=== PATIENT | male | born 1950 | race Caucasian/White ===

== ENCOUNTER 2017-11-15 09:53 | Emergency (ER) | payer MEDICARE, MEDICAID ==
[2017-11-15 10:46] LABS: #Eosinphils 0.1 thou/uL (0.0-0.7); #Lymphocytes 1.2 thou/uL (1.20-3.40); #Neutrophils 9.8 thou/uL (1.40-6.50); %Basophils 0.3 % (0.0-1.0); %Eosinophils 0.6 % (0.0-10.0); %Lymphocytes 9.7 % (21.0-51.0); %Monocytes 8.5 % (0.0-10.0); Hemoglobin 13.8 g/dL (14.0-18.0); Mean Corpuscular HGB CONC 32.5 g/dL (32.0-36.0); Mean Corpuscular Hemoglobin 27.8 pg (27.0-31.0); Mean Corpuscular Volume 85.7 fl (80.0-94.0); Mean Platelet Volume 7.3 fL (7.4-10.4); Platelet Count 178 thou/uL (130-400); RBC Distribution Width 13.5 % (11.5-14.5); Red Blood Cell (RBC) Count 4.95 mill/uL (4.70-6.10); White Blood Cell (WBC) Count 12.1 thou/uL (4.8-10.8)
[2017-11-15 11:04] LABS: ALT (SGPT) 17 U/L (8-55); AST (SGOT) 11 U/L (5-34); Albumin 3.6 g/dL (3.4-4.8); Alkaline Phosphatase 99 U/L (40-150); Anion Gap 12 mmol/L (10-20); BUN (Urea Nitrogen) 16 mg/dL (8.4-25.7); Bilirubin, Total 0.8 mg/dL (0.2-1.2); CK (CPK) 55 U/L (30-200); Calc. Creatinine Clearance 0 mL/min (70-130); Calcium 8.9 mg/dL (7.8-10.44); Carbon Dioxide 26 mmol/L (23-31); Chloride 102 mmol/L (98-107); Estimated GFR-MDRD 58; Glucose 180 mg/dL (80-115); Lipase 7 U/L (8-78); Potassium 3.7 mmol/L (3.5-5.1); Protein, Total 6.6 g/dL (5.8-8.1); Sodium 136 mmol/L (136-145)
[2017-11-15 11:07] LABS: CKMB 0.7 ng/mL (0-6.6); Troponin I 0.014 ng/mL (< 0.028)
[2017-11-15 12:30] LABS: Bilirubin Negative (Negative); Blood, Urine Moderate (Negative); Clarity TURBID (Clear); Glucose, Urine (Dipstick) Negative (Negative); Leukocyte Large (Negative); Nitrite Positive (Negative); Protein, Urine (Dipstick) 30 mg/dL (Neg-Trace); Urobilinogen 0.2 mg/dL (0.2-1.0); pH, Urine 6.5 (5.0-9.0)
[2017-11-15 12:34] LABS: Yeast-AUWi Flag 37.8 (0-25.0)
[2017-11-15 12:43] LABS: Bacteria/HPF 1+ HPF (None Seen); Hyaline Casts/LPF NONE SEEN LPF (0-3 Hyaline); RBC/HPF 0-3 HPF (0-3); Squamous Epithelial 0-3 HPF (0-3)
[2017-11-15] MEDS ORDERED: Ibuprofen 200 MG TAB ONE (13:10)
[2017-11-15] MEDS ORDERED: cefTRIAXone\\ROCEPHIN 2 GM in Sodium Chloride 0.9% 100 ML IVPB ONE (13:15)
--- NOTE | 2017-11-15 14:07 | CT ---
CTA OF THE CHEST AND ABDOMEN WITH CONTRAST: COMPARISON: None. HISTORY: Chest pain and generalized weakness. Lower back pain. Abdominal pain that radiates to the back. TECHNIQUE: Multiple contiguous axial images were obtained in a CTA of the chest and abdomen [facility] Three-D sagittal and coronal MIP reformats were performed. FINDINGS: Atelectasis is seen in both lung bases. No focal infiltrates are seen in the lungs. No suspicious p ulmonary nodules are seen. No pneumothorax or pleural effusion are present. The heart is normal in size without focal cardiac abnormality. Calcifications are seen in the [place] arteries and aorta. No hilar or mediastinal lymphadenopathy are seen. There is a 1.8 cm hypodensity in the left kidney which likely represents a cyst. The liver, gallblad alcides, right kidney, spleen, and pancreas are unremarkable. There is a 2.1 cm mass adjacent to the lef t adrenal gland. This could represent a lesion emanating from the medial limb of the left adrenal gl and versus an enlarged retroperitoneal lymph node. No other enlarged lymph nodes are seen in the ret roperitoneum. There is fullness in the medial limb of the left adrenal gland which measures 1.6 cm i n size. This may represent a mass in the right adrenal gland. The visualized large and small bowel are unremarkable. Degenerative changes are seen in the spine. A pacemaker is seen with its leads in the right atrium and ventricle. The thoracic aorta is normal in caliber without evidence of dissection and has mild diffuse atheroscl erotic disease. Mild atherosclerotic disease is seen in the suprarenal aorta. The celiac trunk, SMA , and FREIDA appear patent. Mild atherosclerotic disease is seen in the celiac trunk and SMA. Moderate atherosclerotic disease is seen in the FREIDA. There is a single renal artery on each side with minimal atherosclerotic disease. The infrarenal aor ta demonstrates ectasia measuring 3.5 cm in greatest dimension. There is mural thrombus along the ri ght posterolateral wall of the aorta in this location. Moderate diffuse calcified plaque is seen in the infrarenal aorta and common iliac arteries. There is no evidence of significant dissection. IMPRESSION: 1. 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 2. Left adrenal mass versus enlarged retroperitoneal lymph node as above. Right adrenal nodule. 3. Left renal cyst. POS: [facility]
[2017-11-15] MEDS ORDERED: ISOVUE-370 76%-LOCM 1 ML ONE (14:35)
== END 2017-11-15 15:20 | disposition home or self-care (01) ==
LOC: ERS 09:53
DX: N30.00 Acute cystitis without hematuria (principal); J44.9 Chronic obstructive pulmonary disease, unspecified; I50.9 Heart failure, unspecified; E78.00 Pure hypercholesterolemia, unspecified; I25.2 Old myocardial infarction; K21.9 Gastro-esophageal reflux disease without esophagitis; Z79.82 Long term (current) use of aspirin; Z79.02 Long term (current) use of antithrombotics/antiplatelets; Z79.899 Other long term (current) drug therapy
CPT/HCPCS: 36415; 71275; 80053; 81003; 81015; 82553; 83690; 84484; 85025; 87077; 87086; 87186; 93005; 96365; J0696; J7050